=== PATIENT | female | born 1940 | race Caucasian/White ===

== ENCOUNTER 2019-11-14 11:04 | Emergency (ER) | payer OTHER, SELFPAY ==
[2019-11-14 11:15] VITALS: BP 152/92; PULSE 92; RESP 16; TEMP 36.8; O2SAT 98
--- NOTE | 2019-11-14 11:23 | ED.SKABFB ---
HPI - Skin/Abscess/Foreign Bdy General Chief complaint: Skin/Abscess/Foreign Body Stated complaint: Body rash Time Seen by Provider: 11/14/19 11:23 Source: patient Mode of arrival: ambulatory Limitations: no limitations History of Present Illness HPI narrative: Claudine Vasquez is a 79 yo female with a PMH of hernia, who comes to express care for a body rash that is circumferential at the waist and linear under arms and along breast; started a week ago has used Goldbond cream with some help but still itches tremendously Related Data Allergies Allergy/AdvReac Type Severity Reaction Status Date / Time lisinopril Allergy Unknown Cough Verified 11/14/19 11:17 Review of Systems Review of Systems: Narrative: CONSTITUTIONAL: Denies fever, chills, sweats. EYES: Denies visual changes, redness, discharge. ENT: Denies rhinorrhea, congestion, sore throat, otalgia. CARDIOVASCULAR: Denies chest pain, palpitations, edema. RESPIRATORY: Denies dyspnea, wheezing, cough GASTROINTESTINAL: Denies abdominal pain, nausea, vomiting, diarrhea. GENITOURINARY: Denies dysuria, hematuria, abnormal discharge SKIN: Has red linear rash times a week NEUROLOGIC: Denies numbness, or focal weakness. PSYCHIATRIC: Denies anxiety or depression. PMFSH Family History Family History Mother Family history of diabetes mellitus in first degree relative Family history of coronary artery disease Father Family history of lung cancer Social History Social History Smoking status: Former smoker Smoking end date: 09/11/91 Alcohol intake: never Gender identity (if verbalized by the patient): Female Comments At time of signature, I agree with nursing past medical, surgical, social and family history. There is no relevant family history pertinent to the presenting complaint. Exam Narrative: Exam Narrative: GENERAL: This is a well-nourished, well-developed patient, in no apparent distress. HEAD: normocephalic, atraumatic. EYES: Sclera clear/white. Vision is grossly intact. EARS: External ears normal,. Hearing grossly intact. NOSE: External nose normal with no obvious nasal discharge, nares without redness, no rhinorrhea. THROAT: Mucous membranes moist, NECK: Neck supple, non-tender CARDIOVASCULAR: Regular rate and rhythm without murmurs, gallops, or rubs. RESPIRATORY: Clear to auscultation. GASTROINTESTINAL: Abdomen soft, SKIN: warm, intact -[place] rash circumferential around his waist under breasts under her arms and buttocks, scar abdomen beneath umbilicus from hernia NEURO: awake, alert, and oriented to person, place and time. There were no obvious focal neurologic abnormalities. Steady gait EXTREMITIES: Normal range of motion. BACK: Nontender . Course Course Emergency Course: Started on hydrocortisone cream and Benadryl given prescription for permethrin BP is elevated here - patient to followup with pcp Vital Signs Vital signs: Vital Signs Temperature 98.3 F 11/14/19 11:15 Pulse Rate 92 11/14/19 11:15 Respiratory Rate 16 11/14/19 11:15 Blood Pressure 152/92 H 11/14/19 11:15 Pulse Oximetry 98 11/14/19 11:15 Temperature 98.3 F 11/14/19 11:15 Pulse Rate 92 11/14/19 11:15 Respiratory Rate 16 11/14/19 11:15 Blood Pressure 152/92 H 11/14/19 11:15 Pulse Oximetry 98 11/14/19 11:15 MDM - Skin/Abscess/Foreign Bdy Differential Diagnosis Differential diagnosis: Likely abscess of skin or subcutaneous tissue, urticaria, eczema and contact dermatitis Discharge Plan Discharge Clinical Impression: Scabies Contact dermatitis Qualifiers: Contact dermatitis type: unspecified Contact dermatitis trigger: other trigger Qualified Code(s): L25.8 - Unspecified contact dermatitis due to other agents Patient Disposition: Home, Self-Care Condition: Stable Instructions: Scabies (ED) Prescriptions:
== END 2019-11-14 11:54 | disposition home or self-care (01) ==
PROVIDERS: Emergency Provider Nurse Practitioner; PCP Family Medicine
DX: B86 Scabies (principal); L25.8 Unspecified contact dermatitis due to other agents; I10 Essential (primary) hypertension
CPT/HCPCS: 99213; G0463

== ENCOUNTER → 2020-10-09 13:20 | Outpatient (CLI) | payer OTHER, SELFPAY ==
--- NOTE | ~2020-10-09 | DEXA_ITS ---
Bone Density Report Name: Claudine Vasquez Age: 80 Sex: Female Ethnicity: White Date of : 1940 Indication: osteopenia; height loss; hysterectomy; postmenopausal Referring Provider: Phuong Prescott Study: Bone densitometry was performed. Exam Date: October 09, 2020 Accession number: [id number] Bone Density: Region BMD T-score Z-score Classification AP Spine (L1-L4) 1.088 0.4 3.0 Normal Femoral Neck (Left) 0.719 -1.2 1.1 Osteopenia Total Hip (Left) 0.830 -0.9 1.1 Normal Femoral Neck (Right) 0.695 -1.4 0.9 Osteopenia Total Hip (Right) 0.785 -1.3 0.7 Osteopenia Total Hip Mean 0.808 -1.1 0.9 Osteopenia World Health Organization criteria for BMD impression classify patients as: Normal (T-score at or above -1.0), Osteopenia (T-score between -1.0 and -2.5), or Osteoporosis (T-score at or below -2.5). 10-year Fracture Risk(1): Major Osteoporotic Fracture 12% Hip Fracture 2.5% Reported Risk Factors: [place] (), Neck BMD=0.695, BMI=34.8 (1) FRAX(R) Version 3.08. Fracture probability calculated for an untreated patient. Fracture probability may be lower if the patient has received treatment. Previous Exams: Region Exam Age BMD T-score BMD Change BMD Change Date g/cm2 vs Baseline vs Previous AP Spine(L1-L4) 10/09/2020 80 1.088 0.4 0.011 0.015 09/12/2018 78 1.073 0.2 -0.004 -0.004 05/24/2013 72 1.078 0.3 Total Hip(Left) 10/09/2020 80 0.830 -0.9 -0.047* -0.007 09/12/2018 78 0.837 -0.9 -0.040* -0.040* 05/24/2013 72 0.877 -0.5 Total Hip(Right) 10/09/2020 80 0.785 -1.3 -0.054* 0.022 09/12/2018 78 0.763 -1.5 -0.076* -0.076* 05/24/2013 72 0.839 -0.8 *Denotes significance at 95% confidence level, LSC for AP Spine = 0.022 g/cm2, LSC for Total Hip = 0.027 g/cm2 Clinical Information Provided by Patient: Has used the following medications: Vitamin D Has the following medical conditions: Hysterectomy Patient maximum height was 62 Menopause Age: 41 No regular weight bearing exercise Drinks caffeinated beverages Onset of menses at age 12 Number of children 0 Impression: The patient has low bone mass, based on the Right Femoral Neck T-score. The patient has an estimated ten-year risk of hip fracture of 2.5% and an estimated ten-year risk of major fracture of 12%, based on the WHO FRAX algorithm. No
== END ==
PROVIDERS: PCP Nurse Practitioner Family; Visit Provider Nurse Practitioner Family
DX: Z78.0 Asymptomatic menopausal state (principal); M85.852 Other specified disorders of bone density and structure, left thigh; M85.851 Other specified disorders of bone density and structure, right thigh
CPT/HCPCS: 77080

== ENCOUNTER → 2021-10-19 12:28 | Outpatient (CLI) | payer OTHER, SELFPAY ==
--- NOTE | ~2021-10-19 | MM_ITS ---
EXAMINATION: MM screening magaly BI w renetta HISTORY: Screening TECHNIQUE: Craniocaudal and mediolateral oblique 3-D tomosynthesis images were obtained and synthetic 2-D images were generated. CAD analysis was submitted and interpreted. COMPARISON: Comparison to multiple prior studies sequentially, with oldest reviewed study dated 06/10. BREAST PARENCHYMAL COMPOSITION: The breasts are almost entirely fatty. FINDINGS: There is no evidence of suspicious mass, calcification, or architectural distortion to sugg est malignancy in either breast. There has been no suspicious interval change. IMPRESSION: 1. No mammographic evidence of malignancy. 2. Recommend routine screening mammography in one year. BI-RADS Category 1: Negative Reviewed, dictated and finalized at location A. POSTER INSTALLER
== END ==
PROVIDERS: PCP Family Medicine; Visit Provider Nurse Practitioner Family
DX: Z12.31 Encounter for screening mammogram for malignant neoplasm of breast (principal)
CPT/HCPCS: 77063; 77067

== ENCOUNTER 2022-08-25 14:10 | Outpatient (CLI) | payer OTHER, SELFPAY | END 2022-08-25 14:11 | disposition home or self-care (01) | LOC: ANHAUDIO 14:11 | PROVIDERS: PCP Family Medicine; Visit Provider Nurse Practitioner Family | DX: H91.90 Unspecified hearing loss, unspecified ear (principal) | CPT/HCPCS: 99199 ==

== ENCOUNTER → 2022-10-11 13:06 | Outpatient (CLI) | payer OTHER, SELFPAY ==
--- NOTE | ~2022-10-11 | DEXA_ITS ---
Bone Density Report Name: VAZQUEZ TOLEDO Age: 82 Sex: Female Ethnicity: White Date of : 1940 Indication: osteopenia; height loss; prior fracture; hysterectomy; postmenopausal Referring Provider: Phuong Prescott Study: Bone densitometry was performed. Exam Date: October 11, 2022 Accession number: [id number] Bone Density: Region BMD T-score Z-score Classification AP Spine (L1-L4) 1.085 0.3 3.1 Normal Femoral Neck (Left) 0.733 -1.0 1.3 Normal Total Hip (Left) 0.856 -0.7 1.4 Normal Femoral Neck (Right) 0.709 -1.3 1.1 Osteopenia Total Hip (Right) 0.824 -1.0 1.2 Normal Total Hip Mean 0.840 -0.9 1.3 Normal World Health Organization criteria for BMD impression classify patients as: Normal (T-score at or above -1.0), Osteopenia (T-score between -1.0 and -2.5), or Osteoporosis (T-score at or below -2.5). 10-year Fracture Risk(1): Major Osteoporotic Fracture 16% Hip Fracture 3.1% Reported Risk Factors: [place] (), Neck BMD=0.709, BMI=36.6, previous fracture (1) FRAX(R) Version 3.08. Fracture probability calculated for an untreated patient. Fracture probability may be lower if the patient has received treatment. Previous Exams: Region Exam Age BMD T-score BMD Change BMD Change Date g/cm2 vs Baseline vs Previous AP Spine(L1-L4) 10/11/2022 82 1.085 0.3 0.007 -0.004 10/09/2020 80 1.088 0.4 0.011 0.015 09/12/2018 78 1.073 0.2 -0.004 -0.004 05/24/2013 72 1.078 0.3 Total Hip(Left) 10/11/2022 82 0.856 -0.7 -0.021 0.026 10/09/2020 80 0.830 -0.9 -0.047* -0.007 09/12/2018 78 0.837 -0.9 -0.040* -0.040* 05/24/2013 72 0.877 -0.5 Total Hip(Right) 10/11/2022 82 0.824 -1.0 -0.015 0.039* 10/09/2020 80 0.785 -1.3 -0.054* 0.022 09/12/2018 78 0.763 -1.5 -0.076* -0.076* 05/24/2013 72 0.839 -0.8 *Denotes significance at 95% confidence level, LSC for AP Spine = 0.022 g/cm2, LSC for Total Hip = 0.027 g/cm2 Clinical Information Provided by Patient: Has had a low trauma fracture Has used the following medications: Vitamin D Has the following medical conditions: Hysterectomy Patient maximum height was 62 Menopause Age: 41 No regular weight bearing exercise Drinks caffeinated beverages Onset of menses at age 12 Number of children 0
== END ==
PROVIDERS: PCP Nurse Practitioner Family; Visit Provider Nurse Practitioner Family
DX: Z78.0 Asymptomatic menopausal state (principal); M85.851 Other specified disorders of bone density and structure, right thigh
CPT/HCPCS: 77080

== ENCOUNTER 2023-08-28 15:20 | Outpatient (CLI) | payer OTHER, SELFPAY ==
[2023-08-28 20:38] LABS: Alanine Aminotransferase 23 U/L (6-35); Albumin Level 4.3 g/dL (3.5-5.1); Alkaline Phosphatase 94 U/L (38-126); Anion Gap 9 mmol/L (8-16); Aspartate Amino Transferase 32 U/L (14-36); Bilirubin,Total 0.5 mg/dL (0.2-1.3); Blood Urea Nitrogen 18 mg/dL (7-17); Calcium 11.2 mg/dL (8.4-10.2); Carbon Dioxide 26 mmol/L (22-30); Chloride 100 mmol/L (98-107); Estimated Glomerular Filt Rate > 60; Glucose 124 mg/dL (65-110); Potassium 3.9 mmol/L (3.4-5.0); Sodium 135 mmol/L (137-145)
[2023-08-28 21:31] LABS: Hemoglobin A1C 6.8 % (<5.7)
== END 2023-08-28 15:21 | disposition home or self-care (01) ==
PROVIDERS: PCP Family Medicine; Visit Provider Family Medicine
DX: E11.9 Type 2 diabetes mellitus without complications (principal); I10 Essential (primary) hypertension
CPT/HCPCS: 36415; 80053; 83036

== ENCOUNTER 2024-05-01 15:45 | Outpatient (CLI) | payer OTHER, SELFPAY ==
[2024-05-01 19:18] LABS: Alanine Aminotransferase 21 U/L (6-35); Albumin Level 4.4 g/dL (3.5-5.1); Alkaline Phosphatase 110 U/L (38-126); Anion Gap 11 mmol/L (4-12); Aspartate Amino Transferase 32 U/L (14-36); Bilirubin,Total 0.5 mg/dL (0.2-1.3); Blood Urea Nitrogen 16 mg/dL (7-17); Calcium 10.6 mg/dL (8.4-10.2); Carbon Dioxide 26 mmol/L (22-30); Chloride 101 mmol/L (98-107); Estimated Glomerular Filt Rate > 60; Glucose 133 mg/dL (65-110); Sodium 138 mmol/L (137-145)
[2024-05-01 19:39] LABS: Creatinine Urine 65.1 mg/dL
[2024-05-01 19:46] LABS: MALB Creatinine Ratio 158.8 mg/g (0-30); Microalbumin Urine Random 103.4 mg/L (0-16.7)
[2024-05-01 20:32] LABS: Hemoglobin A1C 6.4 % (<5.7)
== END 2024-05-01 15:46 | disposition home or self-care (01) ==
LOC: ANHGOSHLAB 15:46
PROVIDERS: PCP Family Medicine; Visit Provider Family Medicine
DX: E11.9 Type 2 diabetes mellitus without complications (principal); I10 Essential (primary) hypertension
CPT/HCPCS: 36415; 80053; 82043; 83036

== ENCOUNTER 2024-05-16 12:50 | Outpatient (CLI) | payer OTHER, SELFPAY | END 2024-05-16 12:51 | disposition home or self-care (01) | LOC: ANHAUDIO 12:50 | PROVIDERS: PCP Family Medicine; Visit Provider Family Medicine | DX: H90.3 Sensorineural hearing loss, bilateral (principal); H61.23 Impacted cerumen, bilateral | CPT/HCPCS: 92557; 92567 ==

== ENCOUNTER 2024-09-02 09:10 | Outpatient (CLI) | payer OTHER, SELFPAY ==
[2024-09-02 12:19] LABS: Basophils Percent Auto 0.6 % (0.2-1.2); Eosinophils Absolute Auto 0.2 K/mm3 (0-0.3); Eosinophils Percent Auto 3.4 % (0-4.4); Hematocrit 44.1 % (37.0-47.0); Hemoglobin 14.2 g/dL (12.0-15.0); Immature Granulocyte Absolute 0.03 K/mm3 (0.00-0.031); Immature Granulocyte Percent A 0.4 % (0-0.5); Lymphocytes Absolute Auto 1.66 K/mm3 (0.9-3.2); Lymphocytes Percent Auto 23.5 % (18.3-44.2); Mean Corpuscular HGB Conc 32.2 g/dl (32-36); Mean Corpuscular Hemoglobin 30.7 pg (26-34); Mean Corpuscular Volume 95.2 fl (80-100); Mean Platelet Volume 10.8 fl (7.4-10.4); Monocytes Absolute Auto 0.6 K/mm3 (0.1-0.6); Monocytes Percent Auto 7.9 % (2.6-8.5); Neutrophils Absolute Auto 4.5 K/mm3 (1.3-6.7); Neutrophils Percent Auto 64.2 % (45.5-73.1); Platelet Count Result 227 k/mm3 (150-375); Red Blood Count 4.63 M/mm3 (4.2-5.4); Red Cell Distribution Width 13.4 % (11.5-14.5); White Blood Count 7.1 K/mm3 (4.5-10.0)
[2024-09-02 13:03] LABS: Alanine Aminotransferase 18 U/L (6-35); Albumin Level 4.1 g/dL (3.5-5.1); Alkaline Phosphatase 102 U/L (38-126); Anion Gap 3 mmol/L (4-12); Aspartate Amino Transferase 45 U/L (14-36); Bilirubin,Total 0.5 mg/dL (0.2-1.3); Blood Urea Nitrogen 22 mg/dL (7-17); Calcium 10.6 mg/dL (8.4-10.2); Carbon Dioxide 27 mmol/L (22-30); Chloride 107 mmol/L (98-107); Cholesterol 187 mg/dL (0-200); Estimated Glomerular Filt Rate > 60; Glucose 156 mg/dL (65-110); HDL Direct 65 mg/dL; Potassium 3.8 mmol/L (3.4-5.0); Sodium 137 mmol/L (137-145); Triglycerides 133 mg/dL (<150)
[2024-09-02 13:03] LABS: Creatinine Urine 60.2 mg/dL
[2024-09-02 13:11] LABS: Vitamin D 25 Hydroxy 72.6 ng/mL
[2024-09-02 13:11] LABS: MALB Creatinine Ratio 105.1 mg/g (0-30); Microalbumin Urine Random 63.3 mg/L (0-16.7)
[2024-09-02 13:13] LABS: LDL Cholesterol Direct 81 mg/dL
[2024-09-02 13:46] LABS: Hemoglobin A1C 6.8 % (<5.7)
[2024-09-02 13:57] LABS: Vitamin B12 > 1000.0 pg/mL (239-931)
== END 2024-09-02 09:11 | disposition home or self-care (01) ==
LOC: ANHGOSHLAB 09:11
PROVIDERS: PCP Family Medicine; Visit Provider Family Medicine
DX: E53.8 Deficiency of other specified B group vitamins (principal); I10 Essential (primary) hypertension; E11.9 Type 2 diabetes mellitus without complications; E78.5 Hyperlipidemia, unspecified; E55.9 Vitamin D deficiency, unspecified
CPT/HCPCS: 36415; 80053; 80061; 82043; 82306; 82607; 83036; 84443; 85025

== ENCOUNTER 2025-02-26 15:16 | Outpatient (CLI) | payer OTHER, SELFPAY ==
--- OUTSIDE RECORDS SUMMARY | 2025-02-26 17:07 | XMS_ITS | Encounter Summary ---
Author Organization [facility] Address [address] [address] Care Team Providers Care Mixer Operator Raw Salt Name Role Phone Unavailable Primary Care Provider Unavailabl e Encounter Details Date Type Department Care Team (Late st Contact Info) Description 04/10/2024 Lab Requisition [facility] - DermPath Lab [address] [facility] [place] [address] Ailyn Barrera MD [address] [facility] [address] [place] [address] Social History Tobacco Use Types Packs/Day Years Used Date Smoking Tobacco: Never Assessed Comments Unknown Sex and Gender Information Value Date Recorded Sex Assigned at Not on file Legal Sex Female 1:25 PM CDT Gender Identity Not on file Sexual Orientation Not on file documented as of this encounter Plan of Treatment Not on file documented as of this encounter Procedures Procedure Name Priority Date/Time Associated Diagnosis Comments DERMATOPATHOLOGY Routine 04/10/2024 1:12 PM CDT documented in this encounter Results * DERMATOPATHOLOGY (04/10/2024 1:12 PM CDT) Case Report Dermatopathology Report Case: [id number] Authorizing Provider: Ailyn Barrera MD Collected: 04/10/2024 01:12 PM Ordering Location: [facility] - Received: 04/11/2024 02:21 PM DermPath Lab Pathologist: Azul Jones MD Specimens: A) - Skin, left helix B) - Skin, left cheek C) - Skin, right neck 2:02 PM CDT DERMATOPATHOLOGY LABORATORY Final Diagnosis Specimen A. SKIN, left helix: SQUAMOUS CELL CARCINOMA, WELL DIFFERENTIATED (C44.229) Specimen B. SKIN, left cheek: ACTINIC KERATOSIS; EXTENDING TO THE BASE OF THE SPECIMEN (L57.0) (see microscopic description and comment) Specimen C. 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 The specimen consists of a shave biopsy measuring 14x9x4 mm. Jar 0. Specimen A: Received is one formalin filled container labeled with the patient's name and designated left helix. The specimen consists of a shave biopsy measuring 7x5x1 mm. Jar 0. Specimen B: Received is one formalin filled container labeled with the patient's name and designated left cheek. The specimen consists of a shave biopsy measuring 7x4x1 mm. Jar 0. 2:02 PM CDT DERMATOPATHOLOGY LABORATORY Microscopic Description Specimen A. SKIN, left helix: Arising in the epidermis and extending into the dermis there are irregularly shaped aggregates of keratinocytes showing evidence of premature cornification. Specimen B. SKIN, left cheek: There is focal parakeratosis. The lower half of the epidermis shows disorderly maturation of keratinocytes with nuclear pleomorphism. This process extends to the base of the specimen. COMMENT: A squamous cell carcinoma cannot be ruled out. Specimen C. SKIN, right neck: The epidermis shows parakeratosis, full thickness disorderly maturation of keratinocytes, mitoses at different levels, and dyskeratotic cells. 2:02 PM CDT DERMATOPATHOLOGY LABORATORY Disclaimer An external and internal positive and negative controls are appropriate for the histochemical, immunohistochemical and immunofluorescence stain(s) in this case (if any), except where stated explicitly. The performance characteristics of the stain(s) cited in this report were developed and its performance characteristic determined by the Dermatopathology Laboratory at [facility], directed by Dr. Lucrecia Ferrara. These tests need not be, and therefore are not, approved by the [place] Food and Drug Administration. The tests are used for clinical purposes. Billing Codes Specimen Charges Stain Charges 48461 61162 92916 1 1 1 4 2:02 PM CDT DERMATOPATHOLOGY LABORATORY Embedded Images 4 2:02 PM CDT DERMATOPATHOLOGY LABORATORY Pathology/Cytology TISSUE SPECIMEN FROM SKIN / Unknown 04/10/2024 1:12 PM CDT 04/11/2024 2:21 PM CDT Miscellaneous samples (specimen) TISSUE SPECIMEN FROM SKIN / Unknown 04/10/2024 1:12 PM CDT 04/11/2024 2:21 PM CDT Miscellaneous samples (specimen) TISSUE SPECIMEN FROM SKIN / Unknown 04/10/2024 1:12 PM CDT 04/11/2024 2:21 PM CDT Ailyn Barrera MD LAB - PATHOLOGY/CYTOLOGY OR DERABLES Final Result DERMATOPATHOLOGY LABORATORY [facility] - Department of Dermatology [facility] Medicine [address] [place] [address], [address] [phone] documented in this encounter Visit Diagnoses Not on filedocumented in this encounter
--- OUTSIDE RECORDS SUMMARY | 2025-02-26 17:07 | XMS_ITS | Clinical Summary ---
Author Organization [facility] Address [address] [place] [address] Care Team Providers Care Decorating Equipment Setter Name Role Phone Unavailable Primary Care Provider Unavailabl e Source Comments [facility],non-owned Affiliates and Associated Physician Practices is amultiple site organization consisting of ambulatory clinics and hospital sitesin [place], [place], [place] and [place]. This disclosure is being madepursuant to the Care Everywhere program and may not contain all information available regarding this patient. Last updated 18.[facility] Encounters Date Type Department Care Team Description 01/28/2025 Lab Requisition [facility] - DermPath Lab [address] [facility] [place] [id number] Silvia Henderson MD from Last 3 Months Social History Tobacco Use Types Packs/Day Years Used Date Smoking Tobacco: Never Assessed Comments Unknown Sex and Gender Information Value Date Recorded Sex Assigned at Not on file Legal Sex Female 1:25 PM CDT Gender Identity Not on file Sexual Orientation Not on file Plan of Treatment Health Maintenance Due Date Last Done Comments BONE DENSITY TESTING 1940 MEDICARE AWV 12 MONTHS 1940 DTAP/TDAP/TD VACCINES (1 - Tdap) 1960 PNEUMOCOCCAL VACCINE 50+ (1 of 1 - PCV) 1991 ZOSTER VACCINE (1 of 2) 1991 Respiratory Syncytial Virus (RSV) Vaccine Pt: or over 60 yrs (1 - 1-dose 75+ series) 2016 COVID-19 VACCINE ( - 2023-2 5 season) 2024 DEPRESSION SCREENING 09/11/2024 INFLUENZA VACCINE (Season Ended) 2025 HEPATITIS B VACCINE Aged Out No longe r eligible based on patient's age to complete this topic HIB VACCINE Aged Out No longer eligi ble based on patient's age to complete this topic HPV VACCINE Aged Out No longer eligi ble based on patient's age to complete this topic MENINGOCOCCAL (Group B) VACC INE SHARED DECISION-MAKING Aged Out No longer eligibl e based on patient's age to complete this topic MENINGOCOCCAL GROUPS A/C/Y/W VACCINE Aged Out No longer eligible b ased on patient's age to complete this topic Procedures Procedure Name Priority Date/Time Associated Diagnosis Comments DERMATOPATHOLOGY Routine 01/28/2025 3:36 PM CDT from Last 3 Months Results * DERMATOPATHOLOGY (01/28/2025 3:36 PM CDT) Case Report Dermatopathology Report Case: [id number] Authorizing Provider: Silvia Henderson MD Collected: 01/28/2025 03:36 PM Ordering Location: [facility] - Received: 01/30/2025 07:03 AM DermPath Lab Pathologist: Marta Tan MD Specimen: Skin, right nasal bridge 3:18 PM CDT DERMATOPATHOLOGY LABORATORY Final Diagnosis Specimen A. SKIN, right nasal bridge: EPIDERMOID CYSTS AND ASSOCIATED COMEDONE (L72.0) 3:18 PM CDT DERMATOPATHOLOGY LABORATORY at 1518 CDT Clinical History R/O Cyst 3:18 PM CDT DERMATOPATHOLOGY LABORATORY Gross Description Specimen A: Received is one formalin filled container labeled with the patient's name and designated right nasal bridge. The specimen consists of a 18x5x3 mm piece of skin. Jar 0. 3:18 PM CDT DERMATOPATHOLOGY LABORATORY Microscopic Description Specimen A. SKIN, right nasal bridge: Sections show follicular infundibula expanded into small cystic structures and inh other areas plugged by cornified cells. 3:18 PM CDT DERMATOPATHOLOGY LABORATORY Disclaimer An external and internal positive and negative controls are appropriate for the histochemical, immunohistochemical and immunofluorescence stain(s) in this case (if any), except where stated explicitly. The performance characteristics of the stain(s) cited in this report were developed and its performance characteristic determined by the Dermatopathology Laboratory at [facility], directed by Dr. Lucrecia Ferrara. These tests need not be, and therefore are not, approved by the [place] Food and Drug Administration. The tests are used for clinical purposes. Billing Codes Specimen Charges Stain Charges 14808 1 5 3:18 PM CDT DERMATOPATHOLOGY LABORATORY Embedded Images 3:18 PM CDT DERMATOPATHOLOGY LABORATORY Pathology/Cytolo gy TISSUE SPECIMEN FROM SKIN / Unknown 01/28/2025 3:36 PM CDT 01/30/2025 7:03 AM CDT us Silvia Henderson MD LAB - PATHOLOGY/CYTOLOGY ORDERA TIMOTEO Final Result DERMATOPATHOLOGY LABORATORY [facility] - Department of Dermatology [address], [address] [phone] from Last [place] [address] [facility]
--- OUTSIDE RECORDS SUMMARY | 2025-02-26 17:07 | XMS_ITS | Continuity of Care Document ---
Author Organization [facility] Address [address] [place] [address] [place] [address] Phone Care Team Providers Care Executor Of Estate Name Role Phone Marion Medina Unavailable Unavailable Procedures Procedure Date Post-op Follow-up Visit Post-op Follow-up Visit Post-op Follow-up Visit Post-op Follow-up Visit Remove Cataract, Insert Lens Eye Exam & Treatment Visual Functional Status Assessed IOLMaster-Professional Advance Directives Directive Yes / No Effective Date File Name No Information Encounters Encounter Description Practice Location Reason(s) For Visit Diagnoses Date Provider Providers Copied on Encounter [facility], [address] [place] [address] [address], [place], [place], [id number], [place] tel:[phone] [facility] No Information 8 Carol Salgado [address] , [address], [place], [place], [facility], [place]. tel:[phone] [facility], [id number] [place] [address] [address], [place], [place], [id number], [place] tel:[phone] [facility] No Information 8 Carol Salgado [address], [place], [address], [place]. tel:[phone] [facility], [address] [place] [address] [address], [place], [place], [id number], [place] tel:[phone] [facility] No Information 8 8 Carol Schultz. [address] , [address], [place], [place], [facility], . tel:[phone] [facility], [address], [place], [place], [id number], tel:[phone] [facility] No Information 8 Delvalle OD Horacio. [address] , [address], [place], [place], [facility], [place]. tel:[phone] [facility], [address], [place], [place], [id number], tel:[phone] [facility] No Information 6 8 Carol Schultz. [address] , [address], [place], [place], [facility], . tel:[phone] [facility], [address], [place], [place], [id number], [place] tel:[phone] [facility] No Information 7 Carol Schultz. [address] , [address], [place], [place], [facility], . tel:[phone] Referring Provider: Marion Perea, [facility] [address], [place], [place], [facility]. tel:[phone] Family History Family Member Type Diagnosis Age At Onset No Information Payers Payer name Insurance type Covered democrat ID Authoriza tion(s) No Information Social History Type Description Quantity Date Captured Comments Sex Female Smoking Status No Information Chief Complaint And Reason For Visit No Information Reason For Referral Reason For Referral No Information History Of Present Illness Encounter Date Complaint History Of Prese nt Illness No Information Functional Status Date Functional Assessmen t No Information Instructions Date Instruction Additional Infor mation No Information Assessments Type Assessment Date No Information Patient Care Teams Name Effective Dates (start - stop) Status Members No Information
--- OUTSIDE RECORDS SUMMARY | 2025-02-26 17:07 | XMS_ITS | Encounter Summary ---
Author Organization [facility] Address [address] [place] [address] Care Team Providers Care Traveling Clerk Name Role Phone Unavailable Primary Care Provider Unavailabl e Encounter Details Date Type Department Care Team (Late st Contact Info) Description 01/28/2025 Lab Requisition [facility] - DermPath Lab [address] [place] [phone] Silvia Henderson MD [address] [place] [address] Social History Tobacco Use Types Packs/Day Years [...] Comments DERMATOPATHOLOGY Routine 01/28/2025 3:36 PM CDT documented in this encounter Results * DERMATOPATHOLOGY (01/28/2025 3:36 PM CDT) Case Report Dermatopathology Report Case: [id number] Authorizing Provider: Silvia Henderson MD Collected: 01/28/2025 03:36 PM Ordering Location: [facility] - Received: 01/30/2025 07:03 AM DermPath Lab Pathologist: Marta Tan MD Specimen: Skin, right nasal bridge 3:18 PM CDT DERMATOPATHOLOGY LABORATORY Final Diagnosis Specimen A. SKIN, right nasal bridge: EPIDERMOID CYSTS AND ASSOCIATED COMEDONE (L72.0) 5 3:18 PM CDT DERMATOPATHOLOGY LABORATORY at 1518 [...] characteristic determined by the Dermatopathology Laboratory at [facility], directed by Dr. Lucrecia Ferrara. These tests need not be, and therefore are not, approved by the [place] Food and Drug Administration. The tests are used for clinical purposes. Billing Codes Specimen Charges Stain Charges [id number] 1 3:18 PM CDT DERMATOPATHOLOGY LABORATORY Embedded Images 3:18 PM CDT DERMATOPATHOLOGY LABORATORY Pathology/Cytolo gy TISSUE SPECIMEN FROM SKIN / Unknown 01/28/2025 3:36 PM CDT 01/30/2025 7:03 AM CDT Silvia Henderson MD LAB - PATHOLOGY/CYTOLOGY ORDERA BLES Final Result DERMATOPATHOLOGY LABORATORY [facility] - Department of Dermatology [address], [address] [phone] documented in this encounter Visit Diagnoses Not on filedocumented in this encounter
--- OUTSIDE RECORDS SUMMARY | 2025-02-26 17:07 | XMS_ITS | Clinical Summary ---
Author Organization [facility] Address [address] [place] [address] Care Team Providers Care Marzipan Maker Name Role Phone Cate Wakefield MD Primary Care Provider Allergies No known active allergies Medications metFORMIN (GLUCOPHAGE) 500 mg tabletIndicatio ns:type 2 diabetes mellitus Take 500 mg by mouth daily with breakfast 8 Active omeprazole OTC (PriLOSEC OTC) 20 mg EC tablet Take 20 mg by mouth daily as needed 8 Active losartan-hydroC HLOROthiazide (HYZAAR) 100-12.5 mg per tabletIndicatio ns:hypertension Take 1 tablet by mouth every morning 9 Active acetaminophen (TYLENOL) 500 mg tablet Take 2 tablets (1,000 mg total) by mouth every 6 (six) hours as needed for pain 90 tablet 0 Active oxyCODONE (ROXICODONE) 5 mg immediate release tabletIndicatio ns:Pain Take 1 tablet (5 mg total) by mouth every 4 (four) hours as needed for pain 15 tablet 0 Active docusate sodium (COLACE) 100 mg capsuleIndicati ons:constipatio n Take 1 capsule (100 mg total) by mouth 2 (two) times a day as needed for constipation 30 capsule 0 Active Contour Next Test Strips strip U UTD ONCE D 6 12/13/201 9 Active Active Problems Problem Noted Date Diagnosed Date Umbilical hernia without obstruction and without gangrene 08/30/2019 Overview (08/30/2019): Added automatically from request for surgery [id number] Disorder of adrenal gland 09/20/2017 Surgical History Surgery Date Site/Laterality Comments CHOLECYSTECTOMY 09/11/2008 - 09/10/2009 HYSTERECTOMY 1979's per pt Medical History Medical History Date Comments Adrenal adenoma, left 4cm left a drenal adenoma Umbilical hernia 3 cm Sleep apnea HTN (hypertension) GERD (gastroesophageal reflux disease) ~15 yrs Diabetes mellitus (HCC) Type II Family History Medical History Relation Name Comments Cancer Father Family history of malignant neoplasm - (Added by TW Conv) Cancer Mother Family history of malignant neoplasm - (Added by TW Conv) Diabetes Mother Family history of diabetes mellitus - (Added by TW Conv) Hypertension Mother Family history of hypertension - (Added by TW Conv) Anesthesia problems Neg Hx Relation Name Status Comments Father Mother Social History Tobacco Use Types Packs/Day Years Used Date Smoking Tobacco: Former Cigarettes 0.1 41 1 963 - 2003 Smokeless Tobacco: Never Alcohol Use Standard Drinks/Week Comments Not Currently 0 (1 standard drink = 0.6 oz pur e alcohol) Comments No Sex and Gender Information Value Date Recorded Sex Assigned at Not on file Legal Sex Female 12:26 PM TWIST TESTER Gender Identity Not on file Sexual Orientation Not on file Obstetrics History Last Filed Vital Signs Vital Sign Reading Time Taken Comments Blood Pressure 141/95 11/19/2019 10:39 AM CDT Pulse 88 11/19/2019 10:39 AM CDT Temperature 36.4 C (97.5 F) 10/21/2019 11:25 AM TWIST TESTER Respiratory Rate 18 10/21/2019 11:15 AM TWIST TESTER Oxygen Saturation 95% 10/21/2019 12:05 PM TWIST TESTER Inhaled Oxygen Concentration - - Weight 85.8 kg (189 lb 3.2 oz) 11/19/2019 10:39 AM CDT Height 154.9 cm (5' 1) 11/19/2019 10:39 AM CDT Body Mass Index 35.75 11/19/2019 10:39 AM CDT Plan of Treatment Not on file Medical Devices Implanted Type Area Pharmacy Tech Customer Service Device Identifier Shelf Expiration Date Model / Serial / Lot [employer] [id number] [facility] 6x4in Monofilament Absorbable Low Profile Latex Free - [id number] Implanted:Qty: 1 on 10/21/2019 by Zahida Garcia MD at [facility] Medicine N/A: Umbilical [employer] [id number] 01/06/2021 [id number] / / [id number] Insurance [facility] Care Teams Marzipan Maker Relationship Specialty Start Date End Date Cate Wakefield MD PCP - General Family Medicine 08/05/19
--- OUTSIDE RECORDS SUMMARY | 2025-02-26 17:07 | XMS_ITS | Referral Summary ---
Author Organization [facility] Address [address] [place] [address] Care Team Providers Care Customs Guard Name Role Phone Cate Wakefield MD Primary [...] Strips strip U UTD ONCE D 6 9 Active Active Problems Problem Noted Date Diagnosed Date Umbilical hernia without obstruction and without gangrene 08/30/2019 Overview (08/30/2019): Added automatically from request for surgery [id number] Disorder of adrenal gland 09/20/2017 Social History Tobacco Use Types Packs/Day Years Used Date Smoking Tobacco: Former Cigarettes 0.1 41 1 963 - 2004 Smokeless Tobacco: Never Alcohol Use Standard Drinks/Week Comments Not Currently 0 (1 standard drink = 0.6 oz pur e alcohol) Comments No Sex and Gender Information Value Date Recorded Sex Assigned at Not on file Legal Sex Female 12:26 PM BENCH MOLDER Gender Identity Not on file Sexual Orientation Not on file Last Filed Vital Signs Vital Sign Reading Time Taken Comments Blood Pressure 141/95 11/19/2019 10:39 AM CDT Pulse 88 11/19/2019 10:39 AM CDT Temperature 36.4 C (97.5 F) 10/21/2019 11:25 AM BENCH MOLDER Respiratory Rate 18 10/21/2019 11:15 AM BENCH MOLDER Oxygen Saturation 95% 10/21/2019 12:05 PM BENCH MOLDER Inhaled Oxygen Concentration - - Weight 85.8 kg (189 lb 3.2 oz) 11/19/2019 10:39 AM CDT Height 154.9 cm (5' 1) 11/19/2019 10:39 AM CDT Body Mass Index 35.75 11/19/2019 10:39 AM CDT Plan of Treatment Not on file Medical Devices Implanted Type Area Ampoule Examiner Device Identifier Shelf Expiration Date Model / Serial / Lot [employer] [id number] Ventralight St Sepra 6x4in Monofilament Absorbable Low Profile Latex Free - [id number] Implanted:Qty: 1 on 10/21/2019 by Zahida Garcia MD at [facility] N/A: Umbilical [employer] [id number] 01/06/2021 [id number] / / [id number] Insurance [facility] Care Teams Customs Guard Relationship Specialty Start Date End Date Cate Wakefield MD PCP - General Family Medicine 08/05/19
[2025-02-26 19:44] LABS: Creatinine Urine 180.1 mg/dL
[2025-02-26 19:48] LABS: MALB Creatinine Ratio 36.8 mg/g (0-30); Microalbumin Urine Random 66.2 mg/L (0-16.7)
[2025-02-26 19:51] LABS: Hemoglobin A1C 6.7 % (<5.7)
[2025-02-26 20:32] LABS: Alanine Aminotransferase 20 U/L (6-35); Albumin Level 4.5 g/dL (3.5-5.1); Alkaline Phosphatase 130 U/L (38-126); Anion Gap 8 mmol/L (4-12); Aspartate Amino Transferase 35 U/L (14-36); Bilirubin,Total 0.4 mg/dL (0.2-1.3); Blood Urea Nitrogen 19 mg/dL (7-17); Calcium 10.8 mg/dL (8.4-10.2); Carbon Dioxide 23 mmol/L (22-30); Chloride 105 mmol/L (98-107); Estimated Glomerular Filt Rate > 60; Glucose 143 mg/dL (65-110); Potassium 4.2 mmol/L (3.4-5.0); Sodium 136 mmol/L (137-145); Total Protein 7.7 g/dL (6.3-8.2)
== END 2025-02-26 15:17 | disposition home or self-care (01) ==
LOC: ANHGOSHLAB 15:17
PROVIDERS: PCP Family Medicine; Visit Provider Family Medicine
DX: I10 Essential (primary) hypertension (principal); E11.9 Type 2 diabetes mellitus without complications
CPT/HCPCS: 36415; 80053; 82043; 83036

== ENCOUNTER 2025-09-01 15:43 | Outpatient (CLI) | payer OTHER, SELFPAY ==
--- OUTSIDE RECORDS SUMMARY | 2025-09-01 17:04 | XMS_ITS | Encounter Summary ---
Author Organization [facility] Address [address] [place] [address] Care Team Providers Care Control Area Operator Name Role Phone Unavailable Primary Care Provider Unavailabl e Encounter Details Date Type Department Care Team (Late st Contact Info) Description 01/28/2025 Lab Requisition [facility] - DermPath Lab [address] [place] [phone] Silvia Henderson MD [address] [place] [address] Social History Tobacco Use Types [...] PM CDT) Case Report Dermatopathology Report Case: [id number] Authorizing Provider: Silvia Henderson MD Collected: 01/28/2025 03:36 PM Ordering Location: [facility] Physician [facility] - Received: 01/30/2025 07:03 AM DermPath Lab [...] characteristic determined by the Dermatopathology Laboratory at [facility], directed by Dr. Lucrecia Ferrara. These tests need not be, and therefore are not, approved by the [place] Food and Drug Administration. The tests are used for clinical purposes. Billing Codes Specimen Charges Stain Charges 50179 1 3:18 PM CDT DERMATOPATHOLOGY LABORATORY Embedded Images 3:18 PM CDT DERMATOPATHOLOGY LABORATORY Pathology/Cytolo gy TISSUE SPECIMEN FROM SKIN / Unknown 01/28/2025 3:36 PM CDT 01/30/2025 7:03 AM CDT Silvia Henderson MD LAB - PATHOLOGY/CYTOLOGY ORDERA BLES Final Result DERMATOPATHOLOGY LABORATORY [facility] - Department of Dermatology [address], [address] [phone] documented in this encounter Visit Diagnoses Not on filedocumented in this encounter
--- OUTSIDE RECORDS SUMMARY | 2025-09-01 17:04 | XMS_ITS | Clinical Summary ---
Author Organization [facility] [employer] Address [address] [place] [address] Care Team Providers Care Weir Fisher Name Role Phone Cate Wakefield MD Primary [...] (08/30/2019): Added automatically from request for surgery [id number] Disorder of adrenal gland 09/20/2017 Surgical History Surgery Date Site/Laterality Comments CHOLECYSTECTOMY 09/11/2008 - 09/10/2009 HYSTERECTOMY 1979's per pt Medical History Medical History Date Comments Adrenal adenoma, left 4cm left a drenal adenoma Umbilical hernia 3 cm Sleep apnea HTN (hypertension) GERD (gastroesophageal reflux disease) ~15 yrs Diabetes mellitus Type II Family History Medical History Relation [...] on file Legal Sex Female 12:26 PM COMPOUND FILLER Gender Identity Not on file Sexual Orientation Not on file Last Filed Vital Signs Vital Sign Reading Time Taken Comments Blood Pressure 141/95 11/19/2019 10:39 AM CDT Pulse 88 11/19/2019 10:39 AM CDT Temperature 36.4 C (97.5 F) 10/21/2019 11:25 AM COMPOUND FILLER Respiratory Rate 18 10/21/2019 11:15 AM COMPOUND FILLER Oxygen Saturation 95% 10/21/2019 12:05 PM COMPOUND FILLER Inhaled Oxygen Concentration - - Weight 85.8 kg (189 lb 3.2 oz) 11/19/2019 10:39 AM CDT Height 154.9 cm (5' 1) 11/19/2019 10:39 AM CDT Body Mass Index 35.75 11/19/2019 10:39 AM CDT Plan of Treatment Not on file Medical Devices Implanted Type Area Dental Treatment Coordinator Device Identifier Shelf Expiration Date Model / Serial / Lot [employer] [id number] [facility] [address] Sep[facility] 6x4in Monofilament Absorbable Low Profile Latex Free - [id number] Implanted:Qty: 1 on 10/21/2019 by Zahida Garcia MD at [facility] N/A: Umbilical [employer] [id number] 01/06/2021 [id number] / / [id number] Insurance [facility] Care Teams Weir Fisher Relationship Specialty Start Date End Date Cate Wakefield MD PCP - General Family Medicine 08/05/19
--- OUTSIDE RECORDS SUMMARY | 2025-09-01 17:04 | XMS_ITS | Clinical Summary ---
Author Organization [facility] Address [address] [place] [place] [address] Care Team Providers Care Heavy Mobile Equipment Operator Name Role Phone Unavailable Primary Care Provider Unavailabl e Source Comments [facility],non-owned Affiliates and Associated Physician Practices is amultiple site organization consisting of ambulatory clinics and hospital sitesin [place], [place], [place] and [place]. This disclosure is being madepursuant to the Care Everywhere program and may not contain all information available regarding this patient. Last updated 18.[facility] Social History Tobacco Use Types Packs/Day Years [...] yrs (1 - 1-dose 75+ series) 2016 DEPRESSION SCREENING 09/11/2024 COVID-19 VACCINE (1 - 2024-2 6 season) 2025 INFLUENZA VACCINE (#1) 2025 HEPATITIS B VACCINE Aged Out No [...] on patient's age to complete this topic Insurance [employer]
--- OUTSIDE RECORDS SUMMARY | 2025-09-01 17:04 | XMS_ITS | Encounter Summary ---
Author Organization [facility] Address [address] [place] [address] Care Team Providers Care Senior Sas Programmer Name Role Phone Unavailable Primary Care Provider Unavailabl e Encounter Details Date Type Department Care Team (Late st Contact Info) Description 04/10/2024 Lab Requisition [facility] - DermPath Lab [address] [place] [address] Ailyn Barrera MD [address] [facility] [address] [place] [address] Social History Tobacco Use Types Packs/Day Years [...] PM CDT) Case Report Dermatopathology Report Case: [id number] Authorizing Provider: Ailyn Barrera MD Collected: 04/10/2024 01:12 PM Ordering Location: [facility] Physician [facility] - Received: 04/11/2024 02:21 PM DermPath [...] purposes. Billing Codes Specimen Charges Stain Charges [id number] 51692 1 1 1 4 2:02 PM CDT [...] PATHOLOGY/CYTOLOGY OR DERABLES Final Result DERMATOPATHOLOGY LABORATORY [facility] - Department of Dermatology [facility] Medicine [address] [place] [address], [address] [phone] documented in this encounter Visit Diagnoses Not on filedocumented in this encounter
[2025-09-01 18:59] LABS: Hematocrit 45.9 % (37.0-47.0); Hemoglobin 15.4 g/dL (12.0-15.0); Immature Granulocyte Percent A 0.4 % (0-0.5); Lymphocytes Absolute Auto 0.91 K/mm3 (0.9-3.2); Mean Corpuscular HGB Conc 33.6 g/dl (32-36); Mean Corpuscular Hemoglobin 30.4 pg (26-34); Mean Corpuscular Volume 90.7 fl (80-100); Nucleated Red Blood Cells Absolute Auto 0.000 K/mm3 (0.0-0.012); Nucleated Red Blood Cells Perc 0.0 % (0.0-0.2); Platelet Count Result 219 k/mm3 (150-375); Red Blood Count 5.06 M/mm3 (4.2-5.4); White Blood Count 5.1 K/mm3 (4.5-10.0)
[2025-09-01 19:01] LABS: Alanine Aminotransferase 22 U/L (6-35); Albumin Level 4.4 g/dL (3.5-5.1); Alkaline Phosphatase 108 U/L (38-126); Anion Gap 8 mmol/L (4-12); Aspartate Amino Transferase 34 U/L (14-36); Bilirubin,Total 0.5 mg/dL (0.2-1.3); Blood Urea Nitrogen 15 mg/dL (7-17); Calcium 11.1 mg/dL (8.4-10.2); Carbon Dioxide 26 mmol/L (22-30); Chloride 103 mmol/L (98-107); Cholesterol 159 mg/dL (0-200); Estimated Glomerular Filt Rate > 60; Glucose 121 mg/dL (65-110); HDL Direct 61 mg/dL; Magnesium 1.9 mg/dL (1.6-2.3); Potassium 4.1 mmol/L (3.4-5.0); Sodium 137 mmol/L (137-145); Total Protein 7.6 g/dL (6.3-8.2); Triglycerides 131 mg/dL (<150)
[2025-09-01 19:05] LABS: Hemoglobin A1C 6.2 % (<5.7)
[2025-09-01 19:26] LABS: Thyroid Stimulating Hormone Reflex 2.260 uIU/mL (0.465-4.68)
[2025-09-01 20:03] LABS: Vitamin B12 > 1000.0 pg/mL (239-931)
== END 2025-09-01 15:44 | disposition home or self-care (01) ==
LOC: ANHGOSHLAB 15:43
PROVIDERS: PCP Nurse Practitioner Family; Visit Provider Nurse Practitioner Family
DX: E78.5 Hyperlipidemia, unspecified (principal); I10 Essential (primary) hypertension; E11.9 Type 2 diabetes mellitus without complications; E55.9 Vitamin D deficiency, unspecified; R25.2 Cramp and spasm
CPT/HCPCS: 36415; 80053; 80061; 82306; 82607; 83036; 83735; 84443; 85025